=== PATIENT | female | born 1990 | race Caucasian/White ===

== ENCOUNTER → 2016-06-29 | Outpatient (CLI) | payer OTHER ==
[~2016-06-29] MED LIST: ACET-1256 PO; BUTA1CAP20 PO; CIPR-255 PO; CLB100 PO; LEVOTAB6 PO; MYR25 PO; OXYC7.5T65 PO; PENT100C6 PO; PHEN-775 PO; SULF800T23 PO; SUMA50TA15 PO; [UNRECOGNIZED DRUG - CODE] PO
== END | disposition home or self-care (01) ==
LOC: C.PAPS 12:01
PROVIDERS: ATTEND Obstetrics & Gynecology
DX: Z12.4 Encounter for screening for malignant neoplasm of cervix (principal)

== ENCOUNTER → 2016-07-05 | Outpatient (CLI) | payer OTHER | END | disposition home or self-care (01) | LOC: C.LABSPEC 16:56 | PROVIDERS: ATTEND Urology | DX: R35.0 Frequency of micturition (principal); Z87.440 Personal history of urinary (tract) infections ==

== ENCOUNTER → 2016-07-11 | Outpatient (CLI) | payer OTHER ==
--- NOTE | 2016-07-11 14:37 | MAMMOGRAPHY REPORT ---
ULTRASOUND OF BOTH BREASTS: 07/11/2016 CLINICAL HISTORY: 26-year-old woman presents with pain along the lateral left breast for approximate ly one month. COMPARISON: No prior exams were available for comparison. FINDINGS: Targeted ultrasound was performed in the lateral left breast in the area of pain pointed o ut by the patient (1:00 through 4:00 axes approximately 10 cm from the nipple). In the 1:00 breast, 10 cm from the nipple, incidental note is made of a morphologically normal lymph node with a thin c ortex measuring 1.6 mm. A lobulated hypoechoic circumscribed solid mass is identified in the 3:00 l eft breast, 6 cm from the nipple, likely incidental as the patient does not report focal pain over t his mass. It measures approximately 6.9 x 4.2 x 4.4 mm and definitive characterization with tissue sampling is recommended, although this is likely represents a benign fibroadenoma or lymph node. No other suspicious solid or cystic mass or fluid collection is identified. No focal skin thickening is identified in the area of pain. IMPRESSION: ACR BI-RADS CATEGORY 4A: LOW SUSPICION FOR MALIGNANCY - FOLLOW-UP RECOMMENDED 1. Ultrasound guided core needle biopsy is recommended for an indeterminate solid lobulated 6.9 mm mass in the 3:00 left breast, 6 cm from the nipple. 2. There is no diffuse process along the lateral left breast to explain the nonfocal mastalgia desc ribed by the patient. Therefore, clinical follow-up is recommended. These results and recommendations were discussed with the patient at the time of the exam. She tent atively scheduled the biopsy prior to leaving our department. Maria Eugenia Duncan M.D. ay/:07/11/2016 11:17:08 Attending Technologist: Lulu WILSON(Imani)(Power), [facility] Gamewell Operator: Dr. Maria Eugenia Duncan, [facility] letter sent: Abnormal 4/5 BI-RADS Code: ACR BI-RADS Category 4A: Low Suspicion For Malignancy
== END | disposition home or self-care (01) ==
LOC: C.MAMM 08:36
PROVIDERS: ATTEND Obstetrics & Gynecology
DX: N63 Unspecified lump in breast (principal)

== ENCOUNTER → 2016-07-22 | Outpatient (CLI) | payer OTHER ==
--- NOTE | 2016-07-22 11:33 | Discharge Instructions ---
Discharge Instructions Procedure Procedure Date: Jul 22, 2016. Reason for visit: Left Mass 3 O'clock. Discharge Discharge Date: Jul 22, 2016. Discharge Diagnosis: status post breast biopsy Instructions Activity Recommendations: Additional Limitations (see below) Return to School/Work: no limitations Recommended Home Diet: No Limitations Provider Instructions: ACTIVITY RECOMMENDATIONS: * No lifting, pushing, pulling or exercising the affected side for three days. RETURN TO SCHOOL/WORK: * You may return to work/school after the procedure, but do not perform any strenuous activities for 24 to 48 hours. MEDICATIONS: * Tylenol (two 325 mg) every four to six hours if needed for mild pain (if not allergic to Tylenol). DIET: * Resume previous diet. SPECIAL CARE INSTRUCTIONS: * Keep biopsy site dry for 24 hours. May shower after 24 hours, but do not soak (bathe) incision. * May remove Tegaderm (plastic patch) tomorrow AFTER showering. * Leave the steri-strips on for one week. Allow the steri-strips to fall off by themselves. If not off after one week, you may remove them. You may place a Bandaid crosswise over the strips, if desired. * Apply ice 10 minutes on and 10 minutes off as needed. * Wear a bra at bedtime to sleep more comfortably for 2-3 days. * Your referring physician should have the results after approximately 5 to 7 business days. * Call for unusual bleeding, fever, drainage, etc or if you have any questions call during normal business hours or after hours call Dr Castillo, . FOLLOW UP VISIT: Follow-up with Referring Physician as scheduled. Allergies Coded Allergies: Penicillins (Verified Allergy, Unknown, RASH/HIVES, 02/18/16) Caleb Piper Recommendations: Call your doctor if: * Temperature above 101 degrees * Pain not relieved by pain medicine ordered * There is increased drainage or redness from any incision * You have any unanswered questions or concerns. Your Doctors Instructions noted above were prepared by provider Liyah Castillo. Patient Signature Section: Patient Instructions Signature Page Aysha Robert Patient (or Guardian) Signature/Date: I have read and understand the instructions given to me by my caregivers. Caregiver/RN/Doctor Signature/Date: The above-named patient and/or guardian has received patient instructions on this date. + Original Patient Signature Page (only) stays with chart. Please make copy for patient.
--- NOTE | 2016-07-22 13:52 | MAMMOGRAPHY REPORT ---
ULTRASOUND GUIDED BIOPSY LEFT BREAST: 07/22/2016 CLINICAL HISTORY: Left 3:00 breast mass. PATIENT CONSENT: The procedure, risks and benefits were discussed with the patient and informed writ ten consent was obtained. A timeout was performed immediately prior to the procedure. PROCEDURE DESCRIPTION: With ultrasound guidance, aseptic technique, and lidocaine as the local anest hetic (1% lidocaine to anesthetize the skin and 1% lidocaine with epinephrine to anesthetize the césar per tissues), the mass of concern in the left 3:00 breast was sampled 3 times with a 14-gauge Achiev e biopsy needle. Immediately thereafter, with ultrasound guidance, aseptic technique, and lidocaine as the local anesthetic, a metallic localizer clip was placed centrally in the mass. Direct pressu re was applied to the site immediately post procedure and hemostasis was achieved. The patient tole rated the procedure without complication. She was given wound care instructions. The specimens were sent to pathology for analysis. COMPARISON: Comparison is made to exam dated: 07/11/2016 ultrasound - [facility]. IMPRESSION: ULTRASOUND GUIDED BIOPSY Ultrasound guided core needle biopsy of the left 3:00 breast mass, with clip placement. The patient will receive pathology results from her referring provider. Liyah Castillo M.D. /:07/22/2016 11:35:01 Automatic Drill Operator: Daniela Jordan, [facility]
== END | disposition home or self-care (01) ==
LOC: C.MAMM 11:05
PROVIDERS: ATTEND Obstetrics & Gynecology
DX: N63 Unspecified lump in breast (principal)

== ENCOUNTER 2016-08-13 23:07 | Emergency (ER) | payer OTHER ==
[~2016-08-13] VITALS: Ht 175.3 cm; Wt 85.8 kg
[~2016-08-13 23:07] MED LIST changes: -BUTA1CAP20 PO; -CIPR-255 PO; -CLB100 PO; -MYR25 PO; -OXYC7.5T65 PO; -PHEN-775 PO; -SULF800T23 PO; -SUMA50TA15 PO; -[UNRECOGNIZED DRUG - CODE] PO
[2016-08-13 23:08] VITALS: TEMP 37.2; Ht 175.3 cm; Wt 85.8 kg
[2016-08-13] MEDS ORDERED: PHENAZOPYRIDINE HCL 200 MG TAB PO STA (23:17)
[2016-08-13] MEDS ORDERED: CIPROFLOXACIN 500 MG TAB PO STA (23:17)
[2016-08-13 23:29] LABS: PREG INTERNAL NEGATIVE QC NEG CLEAR BACKGROUND; PREG INTERNAL POSITIVE QC POS CONTROL LINE
[2016-08-13] MEDS ORDERED: PHENAZOPYRIDINE HOME PACK 200 MG VIAL PO ONE (23:30)
[2016-08-13 23:31] LABS: URINE APPEARANCE CLOUDY (CLEAR); URINE BILIRUBIN NEG (NEG); URINE COLOR YELLOW; URINE EPITHELIAL CELL AUTO >30 /lpf (0-5); URINE NITRITE NEG (NEG); URINE PH 5.5 (4.5-7.5); URINE SPECIFIC GRAVITY 1.023 (1.000-1.030); UROBILINOGEN NEG (NEG)
[2016-08-13 23:34] LABS: MANUAL MICROSCOPIC REQUIRED? NO; REVIEW REQ? NO
[2016-08-13] MEDS ORDERED: CIPR-255 PO (23:38)
--- NOTE | 2016-08-13 23:43 | EMERGENCY ROOM VISIT NOTE ---
History Report prepared by Jaja: Selvin Vallejo Under the Supervision of: Dr. Juan Muñoz D.O. First contact with patient: 23:12 Chief Complaint: URINARY SYMPTOMS Stated Complaint: BLADDER & BACK PAIN History of Present Illness The patient is a 26 year old female who presents to the Emergency Room with complaints of constant pain in her bladder that began one day prior to arrival. The patient is also experiencing some pain in her left abdominal/flank area. She is also feeling fatigued and nauseous, but has not experienced any vomiting. The patient has been experiencing decreased volume of void when she urinated, and a "pulling sensation" when she goes. Her urine is cloudy, but this is normal for her as she is receiving Urinary Rescue treatments once per week. She denies any vaginal bleeding/discharge and had her LNMP 3 weeks ago, which was on schedule. 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 A total of 10 systems reviewed and were otherwise negative. Past Medical & Surgical Medical Problems: (1) Kidney stones (2) Stomach problems Surgical Problems: (1) H/O lithotripsy (2) History of appendectomy Family History Diabetes mellitus FH: heart disease FH: lung cancer FH: lung disease FHx: cancer Hypertension Seizures Social History Smoking Status: Never Smoker Alcohol Use: none Drug Use: none Marital Status: in relationship Housing Status: lives with family Occupation Status: [employer] student Current/Historical Medications Scheduled Ciprofloxacin Hcl (Cipro), 500 MG PO BID Levonorgestrel-Ethinyl Estradi (Seasonique), 1 TAB PO QAM Pentosan Polysulfate Sodium (Elmiron), 100 MG PO TID Scheduled PRN Acetaminophen (Tylenol), 500 MG PO Q12 PRN for Pain Allergies Coded Allergies: Penicillins (Verified Allergy, Unknown, RASH/HIVES, 02/18/16) Physical Exam Vital Signs Date Time Temp Pulse Resp B/P Pulse Ox O2 Delivery O2 Flow Rate FiO2 08/13/16 23:48 91 20 127/82 98 08/13/16 23:08 37.2 97 18 127/80 99 Room Air Physical Exam GENERAL: Patient is awake, alert, and in no acute distress. Patient is resting comfortably and showing no signs of anxiety EYES: The conjunctivae are clear. The pupils are round and reactive. EARS, NOSE, MOUTH AND THROAT: The nose is without any evidence of any deformity. Mucous membranes are moist tongue is midline NECK: The neck is nontender and supple. RESPIRATORY: Normal respiratory effort is noted there is no evidence of wheezing rhonchi or rales CARDIOVASCULAR: Regular rate and rhythm noted there no murmurs rubs or gallops normal S1 normal S2 GASTROINTESTINAL: The abdomen is soft, with no guarding or rigidity noted. Bowel sounds are present in all quadrants. Abdomen is nontender BACK: There is mild left CVA tenderness noted to percussion. No midline tenderness or or step-off noted range of motion in flexion extension as well as rotation no signs of muscle spasm noted MUSCULOSKELETAL/EXTREMITIES: There is no evidence of gross deformity full range of motion is noted in the hips and shoulders SKIN: There is no obvious evidence of any rash. There are no petechiae, pallor or cyanosis noted. NEUROLOGIC: Patient is awake alert and oriented x3 strength is symmetric patellar reflexes are 2+ bilaterally Medical Decision & Procedures Laboratory Results Test 08/13/16 23:15 Urine Color YELLOW Urine Appearance CLOUDY (CLEAR) Urine pH 5.5 (4.5-7.5) Urine Specific [place] 1.023 (1.000-1.030) Urine Protein NEG (NEG) Urine Glucose (UA) NEG (NEG) Urine Ketones NEG (NEG) Urine Occult Blood 2+ (NEG) Urine Nitrite NEG (NEG) Urine Bilirubin NEG (NEG) Urine Urobilinogen NEG (NEG) Urine Leukocyte Esterase LARGE (NEG) Urine WBC (Auto) >30 /hpf (0-5) Urine RBC (Auto) >30 /hpf (0-4) Urine Hyaline Casts (Auto) 1-5 /lpf (0-5) Urine Epithelial Cells (Auto) >30 /lpf (0-5) Urine Bacteria (Auto) 1+ (NEG) Urine Test NEG (NEG) Laboratory results per my review. Medications Administered Medications (Trade) Dose Ordered Sig/Ni Route Start Time Stop Time Status Last Admin Dose Admin Phenazopyridine HCl (Pyridium Tab) 200 mg NOW STAT PO 08/13/16 23:17 08/13/16 23:18 DC 08/13/16 23:27 200 MG Phenazopyridine HCl (Phenazopyridine HCl 200MG Home Pack) 1 homepack UD ONCE PO 08/13/16 23:30 08/13/16 23:31 DC 08/13/16 23:27 1 HOMEPACK Ciprofloxacin (Cipro Tab) 500 mg NOW STAT PO 08/13/16 23:17 08/13/16 23:18 DC 08/13/16 23:27 500 MG Ciprofloxacin (Cipro 500MG Home Pack) 1 homepack UD ONCE PO 08/13/16 23:45 08/13/16 23:46 DC 08/13/16 23:46 1 HOMEPACK Oxycodone HCl (Roxicodone Immediate Rel 5MG Home Pack) 1 homepack UD ONCE PO 08/13/16 23:45 08/13/16 23:46 DC 08/13/16 23:45 1 HOMEPACK Ondansetron HCl (ZOFRAN ODT 4MG Home Pack) 1 homepack UD ONCE PO 08/13/16 23:45 08/13/16 23:46 DC 08/13/16 23:45 1 HOMEPACK ED Course 2313: The patient was evaluated in room B6. A complete history and physical examination were performed. 2317: Ordered Ciprofloxacin 500 mg PO, Phenazopyridine 200 mg PO. 2330: Ordered Phenazopyridine 1 homepack PO. 2345: Zofran 1 homepack PO, Oxycodone HCl 1 homepack PO, Ciprofloxacin 1 homepack PO. 2348: Upon reevaluation, the patient is resting in bed. I discussed the results and treatment plan with her. She verbalized agreement of the treatment plan. The patient was discharged home. Medical Decision Differential diagnosis: Etiologies such as diverticulitis, PUD, biliary pathology, UTI, pancreatitis, obstruction, mesenteric ischemia, aortic pathology, infections, inflammatory bowel disease, renal colic, as well as others were entertained. Nursing notes reviewed. Patient's previous urine cultures were reviewed. The patient is a 26-year-old female who presented to the emergency department with dysuria and frequency as well as post void residual who presented to the emergency department for these symptoms with a history of cystitis. The patient has had previous urinary tract infections in the past. Her most recent urine cultures did not grow out a definite organism but she does have a urinalysis from December 2015 the grout Klebsiella which was pansensitive. The patient states that she has been treated with Cipro as well as Pyridium in the past with good relief. She was started on Cipro and Pyridium in the emergency department. She was offered pain medication but did not wish to have any. Her physical exam did not appear to be consistent with an acute surgical abdomen. She was encouraged to continue all medications as prescribed and drink plenty clear liquids. She was also encouraged to follow-up with her primary urologist for further evaluation. She was also encouraged to return to the emergency department immediately if symptoms change worsen or the need arises. Impression Primary Impression: Hemorrhagic cystitis Scribe Attestation The scribe's documentation has been prepared under my direction and personally reviewed by me in its entirety. I confirm that the note above accurately reflects all work, treatment, procedures, and medical decision making performed by me. Departure Information Dispostion Home / Self-Care Prescriptions Ciprofloxacin Hcl (CIPRO) 500 Mg Tab 500 MG PO BID, #14 TAB Prov: Juan Muñoz, 08/13/16 Referrals Ti Bethea D.O.Int.Med. (PCP) Forms HOME CARE DOCUMENTATION FORM, IMPORTANT VISIT INFORMATION Patient Instructions My [facility] Additional Instructions Drink plenty of clear liquids. Continue all medications as prescribed. Rest and avoid any strenuous activity. Call your primary urologist schedule a follow-up appointment. Return to the emergency department immediately if symptoms change worsen or if the need arises.
[2016-08-13] MEDS ORDERED: OXYCODONE IR HOME PACK PO ONE (23:45)
[2016-08-13] MEDS ORDERED: CIPROFLOXACIN 500MG HOME PACK PO ONE (23:45)
[2016-08-13] MEDS ORDERED: ONDANSETRON HOME PACK 4MG OD TAB PO ONE (23:45)
[2016-08-13 23:48] VITALS: BP 127/82; PULSE 91; O2SAT 98
--- NOTE | 2016-08-16 10:59 | Pharmacy Progress Note ---
ED Pharmacist Culture FollowUp Date of Service: Aug 16, 2016. Patient seen on 08/13/16 w/ urinary symptoms (dysuria, frequency), as well as abd pain, mild L flank pain. Pt was dx with cystitis and discharge w/ Rx for Ciprofloxacin 500mg PO BID x 7 days. Urine Cx is growing pansensitive E Coli. Cipro will cover this organism and duration of treatment appropriate UTI and for possible pyelo given symptoms. No action required.
[2016-11-03] MEDS ORDERED: OXYC7.5T65 PO (13:59)
[2016-11-03] MEDS ORDERED: CIPR-255 PO (13:59)
[2016-11-03] MEDS ORDERED: PHEN-775 PO (13:59)
== END 2016-08-13 23:49 | disposition home or self-care (01) ==
LOC: C.EDB 23:08
DX: N30.90 Cystitis, unspecified without hematuria (principal); A49.8 Other bacterial infections of unspecified site

== ENCOUNTER → 2016-08-29 | Outpatient (CLI) | payer OTHER ==
[~2016-08-29] MED LIST changes: +BUTA1CAP20 PO; +CIPR-255 PO; +OXYC7.5T65 PO; +PHEN-775 PO; +SULF800T23 PO; +SUMA50TA15 PO; +[UNRECOGNIZED DRUG - CODE] PO
== END | disposition home or self-care (01) ==
LOC: C.LABSPEC 11:38
PROVIDERS: ATTEND Urology
DX: N20.0 Calculus of kidney (principal); N30.10 Interstitial cystitis (chronic) without hematuria; B96.20 Unspecified Escherichia coli [E. coli] as the cause of diseases classified elsewhere

== ENCOUNTER 2016-10-05 18:19 | Emergency (ER) | payer OTHER ==
[~2016-10-05] VITALS: Ht 175.3 cm; Wt 84.0 kg
[~2016-10-05 18:19] MED LIST changes: -BUTA1CAP20 PO; -OXYC7.5T65 PO; -PHEN-775 PO; -SULF800T23 PO; -SUMA50TA15 PO; -[UNRECOGNIZED DRUG - CODE] PO
[2016-10-05 18:30] VITALS: TEMP 36.6; Ht 175.3 cm; Wt 84.0 kg
[2016-10-05] MEDS ORDERED: HYDROmorphone INJ 1 MG/ML SYR IV STA ×2 (19:16→20:39)
[2016-10-05] MEDS ORDERED: SODIUM CHLORIDE 0.9% 1000ML 1,000 ML IV STA ×2 (19:16→20:39)
[2016-10-05] MEDS ORDERED: ONDANSETRON INJ 2 MG/ML 2 ML VIAL IV STA (19:16)
--- NOTE | 2016-10-05 19:23 | EMERGENCY ROOM VISIT NOTE ---
History Report prepared by Jaja: Eli Finley Under the Supervision of: Dr. Tavo Louis M.D. 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 The patient rates her pain an 8/10 in intensity. Associated symptoms include suprapubic discomfort, weakness, and fatigue. The patient has a history of interstitial cystitis. She follows up with Dr. Chinchilla (Urology). She states the pain she is experiencing today is worse than pain she has experienced in the past related to her IC. The patient has recently been treated with Cipro for a UTI. She denies burning with urination, fevers, chills, vomiting, or any additional associated symptoms. 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 A total of 10 systems reviewed and were otherwise negative. Past Medical & Surgical Medical Problems: (1) Kidney stones (2) Stomach problems Surgical Problems: (1) H/O lithotripsy (2) History of appendectomy Family History Diabetes mellitus FH: heart disease FH: lung cancer FH: lung disease FHx: cancer Hypertension Seizures Social History Smoking Status: Never Smoker Alcohol Use: none Drug Use: none Marital Status: in relationship Housing Status: lives with family Occupation Status: [employer] student Current/Historical Medications Scheduled Levonorgestrel-Ethinyl Estradi (Seasonique), 1 TAB PO QAM Pentosan Polysulfate Sodium (Elmiron), 100 MG PO TID Sulfa/Trimethoprim (Bactrim Ds 800MG/160MG), 1 TAB PO BID Scheduled PRN Acetaminophen (Tylenol), 500 MG PO Q12 PRN for Pain Allergies Coded Allergies: Penicillins (Verified Allergy, Unknown, RASH/HIVES, 10/05/16) Physical Exam Vital Signs Date Time Temp Pulse Resp B/P Pulse Ox O2 Delivery O2 Flow Rate FiO2 10/05/16 22:49 77 16 105/53 96 Room Air 10/05/16 22:10 79 18 117/65 96 Room Air 10/05/16 19:48 93 16 97 Room Air 10/05/16 18:30 36.6 109 20 130/60 99 Room Air Physical Exam GENERAL: Patient is uncomfortable appearing, in moderate distress. HEENT: No acute trauma, normocephalic atraumatic, mucous membranes dry, no nasal congestion, no scleral icterus. NECK: No stridor, no adenopathy, no meningismus, trachea is midline. LUNGS: No dyspnea. Clear to auscultation and equal bilaterally. No wheeze, no rhonchi. HEART: Tachycardic, regular rhythm. No murmurs, rubs, gallops appreciated. ABDOMEN: Suprapubic discomfort. Soft, bowel sounds positive, no masses appreciated, no peritonitis. BACK: No midline tenderness, Left CVA tenderness to palpation. EXTREMITIES: Normal motion all extremities, no cyanosis, no edema. NEUROLOGIC: Alert and oriented, no acute motor or sensory deficits, no focal weakness, cranial nerves grossly intact. SKIN: No rash, no jaundice, no diaphoresis. Medical Decision & Procedures ER Provider Diagnostic Interpretation: US stated below per my review and radiologist interpretation: RENAL ULTRASOUND HISTORY: left flank pain, bladder pain, history of kidney stones COMPARISON: Renal ultrasound 04/09/2015. Abdomen and pelvis CT 01/29/2016. FINDINGS: Right kidney: 10.8 cm. No hydronephrosis. Normal corticomedullary differentiation and cortical thickness. Left kidney: 10.7 cm. No hydronephrosis. Normal corticomedullary differentiation and cortical thickness. Bladder: Bladder is decompressed resulting in suboptimal evaluation. No ureteral jets identified. IMPRESSION: Normal kidneys. Of note, no renal calculi were identified on the recent CT examination. Electronically signed by: Mj Maloney M.D. 10/05/2016 9:42 PM Dictated Date/Time: 10/05/2016 9:40 PM Laboratory Results 10/05/16 19:35 Red Blood Count 4.58, Mean Corpuscular Volume 91.5, Mean Corpuscular Hemoglobin 32.1, Mean Corpuscular Hemoglobin Concent 35.1, Mean Platelet Volume 9.7, Neutrophils (%) (Auto) 47.3, Lymphocytes (%) (Auto) 40.1, Monocytes (%) (Auto) 10.9, Eosinophils (%) (Auto) 0.9, Basophils (%) (Auto) 0.6, Neutrophils # (Auto ) 4.30, Lymphocytes # (Auto) 3.64, Monocytes # (Auto) 0.99, Eosinophils # (Auto ) 0.08, Basophils # (Auto) 0.05 10/05/16 19:35 Test 10/05/16 19:35 White Blood Count 9.08 K/uL (4.8-10.8) Red Blood Count 4.58 M/uL (4.2-5.4) Hemoglobin 14.7 g/dL (12.0-16.0) Hematocrit 41.9 % (37-47) Mean Corpuscular Volume 91.5 fL (80-100) Mean Corpuscular Hemoglobin 32.1 pg (25-34) Mean Corpuscular Hemoglobin Concent 35.1 g/dl (32-36) Platelet Count 293 K/uL (130-400) Mean Platelet Volume 9.7 fL (7.4-10.4) Neutrophils (%) (Auto) 47.3 % Lymphocytes (%) (Auto) 40.1 % Monocytes (%) (Auto) 10.9 % Eosinophils (%) (Auto) 0.9 % Basophils (%) (Auto) 0.6 % Neutrophils # (Auto) 4.30 K/uL (1.4-6.5) Lymphocytes # (Auto) 3.64 K/uL (1.2-3.4) Monocytes # (Auto) 0.99 K/uL (0.11-0.59) Eosinophils # (Auto) 0.08 K/uL (0-0.5) Basophils # (Auto) 0.05 K/uL (0-0.2) RDW Standard Deviation 41.5 fL (36.4-46.3) RDW Coefficient of Variation 12.4 % (11.5-14.5) Immature Granulocyte % (Auto) 0.2 % Immature Granulocyte # (Auto) 0.02 K/uL (0.00-0.02) Urine Color YELLOW Urine Appearance CLEAR (CLEAR) Urine pH 6.0 (4.5-7.5) Urine Specific [place] 1.025 (1.000-1.030) Urine Protein NEG (NEG) Urine Glucose (UA) NEG (NEG) Urine Ketones 3+ (NEG) Urine Occult Blood NEG (NEG) Urine Nitrite NEG (NEG) Urine Bilirubin NEG (NEG) Urine Urobilinogen NEG (NEG) Urine Leukocyte Esterase NEG (NEG) Urine WBC (Auto) 1-5 /hpf (0-5) Urine RBC (Auto) 5-10 /hpf (0-4) Urine Hyaline Casts (Auto) 5-10 /lpf (0-5) Urine Epithelial Cells (Auto) >30 /lpf (0-5) Urine Bacteria (Auto) 1+ (NEG) Urine Test NEG (NEG) Anion Gap 7.0 mmol/L (3-11) Est Creatinine Clear Calc Drug Dose 89.7 ml/min Estimated GFR () 80.2 Estimated GFR (Non- 69.2 BUN/Creatinine Ratio 11.3 (10-20) Calcium Level 9.2 mg/dl (8.5-10.1) C-Reactive Protein 0.46 mg/dl (0-0.29) Laboratory results as reviewed by me. Medications Administered Medications (Trade) Dose Ordered Sig/Ni Route Start Time Stop Time Status Last Admin Dose Admin Hydromorphone HCl (Dilaudid Inj) 1 mg NOW STAT IV 10/05/16 19:16 10/05/16 19:18 DC 10/05/16 19:36 1 MG Ondansetron HCl 4 mg 4 mg NOW STAT IV 10/05/16 19:16 10/05/16 19:18 DC 10/05/16 19:36 4 MG Sodium Chloride (Nss 1000ml) 1,000 ml @ 999 mls/hr Q1H1M STAT IV 10/05/16 19:16 10/05/16 20:16 DC 10/05/16 19:37 999 MLS/HR Hydromorphone HCl 1 mg 1 mg NOW STAT IV 10/05/16 20:39 10/05/16 20:40 DC 10/05/16 20:59 1 MG Sodium Chloride (Nss 1000ml) 1,000 ml @ 999 mls/hr Q1H1M STAT IV 10/05/16 20:39 10/05/16 21:39 DC 10/05/16 20:59 999 MLS/HR Ceftriaxone Sodium (Rocephin Inj) 1 gm NOW STAT IV 10/05/16 21:58 10/05/16 21:59 DC 10/05/16 22:17 1 GM ED Course 191: The patient was evaluated in room B3. A complete history and physical exam was performed. 1915: Ordered Sodium Chloride 1,000 ml @ 999 mls/hr IV, Zofran Injection 4 mg IV , Dilaudid Injection 1 mg IV. 2036: Upon reevaluation, the patient states that she was feeling better but the pain is beginning to return. She notes a history of kidney stones. She is agreeable to US. 2038: Ordered Sodium Chloride 1,000 ml @ 999 mls/hr IV, Dilaudid Injection 1 mg IV. 2155: The patient request IV antibiotics and 2 doctors notes. She notes that she gets a rash with penicillins but does not believe she is allergic to Rocephin. Patient would also like to try Bactrim tomorrow. 2157: Ordered Rocephin Injection 1 gm IV. Medical Decision Differential: UTI, Urethritis, Pyelonephritis, STI, Herpetic, Vaginitis, Hyperglycemia, Yeast, PID, Cystitis, Hemorrhagic Cystitis, amongst other pathologies entertained. Pleasant 26 yr old female with long history of issues with IC arrives with complaints left flank pain along with suprapubic discomfort similar to previous flares, having just finished macrobid month long course. UA really not very impressive though does have blood. US kidneys looks good. Symptoms none consistent with infected stone. Clearly dehydrated for which fluids given. Labs look OK with just trace CRP elevation. She is stable, feeling improved and has pain meds at home. Wishes to try abx given her history. Will place on Bactrim given recent cipro/macrobid usage and fact bactrim worked well in past. Has Uro appointment coming up. Discussed RTED instructions. Comfortable with discharge and aware can return at any time if worsening or other concerns. Impression Primary Impression: Left flank pain Additional Impression: Interstitial cystitis Scribe Attestation The scribe's documentation has been prepared under my direction and personally reviewed by me in its entirety. I confirm that the note above accurately reflects all work, treatment, procedures, and medical decision making performed by me. Departure Information Dispostion Home / Self-Care Prescriptions Sulfa/Trimethoprim (Bactrim Ds 800MG/160MG) Tab 1 TAB PO BID, #14 TAB Prov: Tavo Louis M.D. 10/05/16 Referrals Ti Bethea D.O.Int.Med. (PCP) Forms HOME CARE DOCUMENTATION FORM, IMPORTANT VISIT INFORMATION Patient Instructions Cystitis Interstitial, My [facility] Problem Qualifiers
[2016-10-05 19:48] LABS: BASO % 0.6 %; BASO ABS # 0.05 K/uL (0-0.2); COMPLETE YES; EOS % 0.9 %; HEMATOCRIT 41.9 % (37-47); IG% 0.2 %; LYMPH % 40.1 %; LYMPH ABS # 3.64 K/uL (1.2-3.4); MEAN CELL VOLUME 91.5 fL (80-100); MEAN CORPUSCULAR HEMOGLOBIN 32.1 pg (25-34); MEAN CORPUSCULAR HGB CONC 35.1 g/dl (32-36); MEAN PLATELET VOLUME 9.7 fL (7.4-10.4); MONO % 10.9 %; NEUT % 47.3 %; PLATELET COUNT 293 K/uL (130-400); RED BLOOD COUNT 4.58 M/uL (4.2-5.4); WHITE BLOOD COUNT 9.08 K/uL (4.8-10.8)
[2016-10-05 19:56] LABS: URINE APPEARANCE CLEAR (CLEAR); URINE BILIRUBIN NEG (NEG); URINE COLOR YELLOW; URINE EPITHELIAL CELL AUTO >30 /lpf (0-5); URINE NITRITE NEG (NEG); URINE SPECIFIC GRAVITY 1.025 (1.000-1.030); UROBILINOGEN NEG (NEG); ZZUR CULT IF INDIC CLEAN CATCH YES
[2016-10-05 19:59] LABS: MANUAL MICROSCOPIC REQUIRED? NO; REVIEW REQ? NO
[2016-10-05 20:07] LABS: BUN/CREATININE RATIO 11.3 (10-20); CALCIUM 9.2 mg/dl (8.5-10.1); CREATININE 1.1 mg/dl (0.60-1.20); POTASSIUM 3.6 mmol/L (3.5-5.1)
[2016-10-05 20:09] LABS: C-REACTIVE PROTEIN 0.46 mg/dl (0-0.29)
--- NOTE | 2016-10-05 21:44 | DIAGNOSTIC IMAGING REPORT ---
RENAL ULTRASOUND HISTORY: left flank pain, bladder pain, history of kidney stones COMPARISON: Renal ultrasound 04/09/2015. Abdomen and pelvis CT 01/29/2016. FINDINGS: Right kidney: 10.8 cm. No hydronephrosis. Normal corticomedullary differentiation and cortical thickness. Left kidney: 10.7 cm. No hydronephrosis. Normal corticomedullary differentiation and cortical thickness. Bladder: Bladder is decompressed resulting in suboptimal evaluation. No ureteral jets identified. IMPRESSION: Normal kidneys. Of note, no renal calculi were identified on the recent CT examination. Electronically signed by: Mj Maloney M.D. 10/05/2016 9:42 PM Dictated Date/Time: 10/05/2016 9:40 PM
[2016-10-05] MEDS ORDERED: CEFTRIAXONE SOD INJ 1 GM ADDVIAL IV STA (21:58)
[2016-10-05] MEDS ORDERED: SULF800T23 PO (21:59)
[2016-10-05 22:49] VITALS: BP 105/53; PULSE 77; O2SAT 96
[2016-11-03] MEDS ORDERED: PHEN-775 PO (13:59)
[2016-11-03] MEDS ORDERED: OXYC7.5T65 PO (13:59)
[2016-11-03] MEDS ORDERED: CIPR-255 PO (13:59)
== END 2016-10-05 23:05 | disposition home or self-care (01) ==
LOC: C.EDB 18:21
DX: R10.12 Left upper quadrant pain (principal); R10.32 Left lower quadrant pain; N30.10 Interstitial cystitis (chronic) without hematuria; Z87.442 Personal history of urinary calculi; Z83.3 Family history of diabetes mellitus; Z82.49 Family history of ischemic heart disease and other diseases of the circulatory system; Z82.0 Family history of epilepsy and other diseases of the nervous system; Z79.3 Long term (current) use of hormonal contraceptives

== ENCOUNTER 2016-11-03 11:31 | Day surgery (SDC) | payer OTHER ==
[2016-10-13 15:34] VITALS: BMI 26.0
[~2016-11-03] VITALS: Ht 175.3 cm; Wt 81.8 kg
[~2016-11-03 11:31] MED LIST changes: -CIPR-255 PO; +CIPROFLOXACIN / D5W 400 MG IV SCH; +LACTATED RINGER'S 1000ML 1,000 ML IV SCH
[2016-11-03 11:53] VITALS: BP 135/62; PULSE 88; TEMP 37.3; O2SAT 97; Ht 175.3 cm; Wt 81.8 kg
[2016-11-03] MEDS ORDERED: ONDANSETRON INJ 2 MG/ML 2 ML VIAL ONE (12:04)
[2016-11-03] MEDS ORDERED: PROPOFOL IV EMULSION 10 MG/ML 20 ML VIAL IV ONE ×2 (12:04→13:37)
[2016-11-03] MEDS ORDERED: MIDAZOLAM HCL 1 MG/ML 2ML VIAL ONE (12:04)
[2016-11-03] MEDS ORDERED: DEXAMETHASONE SOD INJ 4 MG/ML VIAL ONE (12:04)
[2016-11-03] MEDS ORDERED: LIDOCAINE HCL 2% 2 ML VIAL (20MG/ML) ONE (12:04)
[2016-11-03] MEDS ORDERED: FENTANYL CITRATE INJ 50 MCG/1 ML 2 ML VIAL ONE ×2 (12:04→13:38)
--- NOTE | 2016-11-03 12:44 | History & Physical Bridge Note ---
H&P Re-Evaluation Bridge Note: I have examined the patient, reviewed the History & Physical and in the interval since the performance of the History & Physical I have noted the following changes of clinical significance: No changes noted
[2016-11-03] MEDS ORDERED: ONDANSETRON INJ 2 MG/ML 2 ML VIAL IV PRN (12:45)
[2016-11-03] MEDS ORDERED: FENTANYL CITRATE INJ 50 MCG/1 ML 2 ML VIAL IV PRN (12:45)
[2016-11-03] MEDS ORDERED: EpHEDrine SULFATE INJ 50 MG/ML AMP IV PRN (12:45)
[2016-11-03] MEDS ORDERED: MEPERIDINE HCL 25 MG/ML CARP IV PRN (12:45)
[2016-11-03] MEDS ORDERED: ATROPINE SULFATE 0.1 MG/ML 5ML SYR IV PRN (12:45)
[2016-11-03] MEDS ORDERED: HYDROmorphone INJ 1 MG/ML SYR IV PRN (12:45)
[2016-11-03] MEDS ORDERED: LABETALOL HCL IV 5 MG/ML 20ML IV PRN (12:45)
[2016-11-03] MEDS ORDERED: BELLADONNA/OPIUM SUPP 60 MG SUPP PR ONE ×2 (13:35)
[2016-11-03] MEDS ORDERED: CIPR-255 PO (13:59)
[2016-11-03] MEDS ORDERED: OXYC7.5T65 PO (13:59)
[2016-11-03] MEDS ORDERED: PHEN-775 PO (13:59)
--- NOTE | 2016-11-03 13:59 | Discharge Instructions ---
Discharge Instructions Date of Service November 03, 2016. Admission Reason for Admission: Interstitial Cystitis Discharge Discharge Diagnosis / Problem: IC s/p cysto, hydrodistension Discharge Goals Goal(s): Decrease discomfort, Improve disease control, Therapeutic intervention Activity Recommendations Activity Limitations: per Instructions/Follow-up section Lifting Limitations: no more than 25 pounds, gradually increase as tolerated Exercise/Sports Limitations: rest today, gradually increase as tolerated May Resume Sexual Activity: when tolerated, after one week Shower/Bathe: no limitations Driving or Machine Use: resume 1 day after discharge . Instructions / Follow-Up Instructions / Follow-Up As scheduled in office Discharge Diet Recommended Diet: Regular Diet (good fluid intake) Procedures Procedures Performed: Cysto, hydrodistension Pending Studies Studies pending at discharge: no Medical Emergencies . Who to Call and When: Medical Emergencies: If at any time you feel your situation is an emergency, please call 911 immediately. . Non-Emergent Contact Non-Emergency issues call your: Urologist Call Non-Emergent contact if: you have a fever, temperature is above 101, your pain is not controlled, your pain is worsening, your pain is unusual for you, your pain is concerning you, wound has increased drainage, wound has increased redness, you have any medication questions . . "Provider Documentation" section prepared by Jakob Chinchilla. . VTE Core Measure Inpt VTE Proph given/why not?: SCD's [place] Drug Monitoring Program Search Results: patient reviewed within database, no issues identified (last Rx Feb 2016)
[2016-11-03] MEDS ORDERED: OXYCODONE/ACETAMINOPHEN 5-325 TAB PO PRN (14:00)
[2016-11-03] MEDS ORDERED: PHENAZOPYRIDINE HCL 200 MG TAB PO PRN (14:00)
--- NOTE | 2016-11-03 14:01 | [facility] Post Operative Brief Note ---
Immediate Operative Summary Operative Date November 03, 2016. Pre-Operative Diagnosis Refactory Interstitial Cystitis Post-Operative Diagnosis Same as preoperative. Procedure(s) Performed Cystoscopy, hydrodistension under anesthesia Surgeon Dr. Enid Chinchilla Jewel Sorter Surgeon(s) None Estimated Blood Loss 10 ML Findings Glomerulations present after completion, 525 cc capacity first distension, 600 cc second time Specimens None per surgeon Drains NA Anesthesia GALMA Complication(s) None Disposition Recovery Room / PACU
--- NOTE | 2016-11-03 14:39 | Anesthesiology Progress Note ---
Anesthesia Post Op Note Date & Time November 03, 2016 at 14:40 Vital Signs Pain Intensity: 7 Vital Signs Past 12 Hours Date Time Temp Pulse Resp B/P Pulse Ox O2 Delivery O2 Flow Rate FiO2 11/03/16 11:53 37.3 88 20 135/62 97 Room Air Notes Mental Status: alert / awake / arousable, participated in evaluation Pt Amnestic to Procedure: Yes Nausea / Vomiting: adequately controlled Pain: adequately controlled Airway Patency, RR, SpO2: stable & adequate BP & HR: stable & adequate Hydration State: stable & adequate Anesthetic Complications: no major complications apparent
[2016-11-03 14:55] VITALS: BP 106/40; PULSE 64; TEMP 36.6; O2SAT 99
[2016-11-03 15:25] VITALS: BP 98/62; PULSE 70; TEMP 36.4; O2SAT 98
--- NOTE | 2016-11-03 16:59 | OPERATIVE REPORT ---
DATE OF OPERATION: 11/03/2016 PREOPERATIVE DIAGNOSIS: Refractory interstitial cystitis. POSTOPERATIVE DIAGNOSIS: Same. PROCEDURE: Cystoscopy, hydrodistention under anesthesia. SURGEON: Dr. Jakob Chinchilla. FIREARMS SALES ASSOCIATE: None. ANESTHESIA: General laryngeal mask. COMPLICATIONS: None. ESTIMATED BLOOD LOSS: 10 mL. FINDINGS: Glomerulations present after bladder distention, 525 mL capacity on first one and 600 mL capacity on second one. DRAINS LEFT IN PLACE: None. SPECIMENS SENT TO PATHOLOGY: None. BRIEF HISTORY OF PRESENT ILLNESS: Ms. Robert is a pleasant 26-year-old female who I have seen as an outpatient for history of refractory pelvic pain and interstitial cystitis. She has continued to have pain despite conservative management as an outpatient and responded well to hydrodistention in February 2016. She is here today at her request for repeat hydrodistention seeing her prior improvement and refractory current symptoms. Intravenous ciprofloxacin provided for antibiotic coverage and SCDs used for DVT prophylaxis. Please see H\T\P for further details. DESCRIPTION OF PROCEDURE: The patient was properly identified and brought to the operative suite after identification of appropriate consent in the chart, general anesthesia with laryngeal mask was initiated and the patient was prepped and draped in standard fashion for this procedure. dirt contractor-out procedure was followed. Specimen bag was measured at 100 cm above the level of the patient's bladder and a 22-Bengali rigid cystoscope was entered into the bladder. Bladder was surveyed in its entirety demonstrating normal anatomy with ureteral orifices in the normal anatomic location and effluxing clear yellow urine. No Hunner's ulcers, masses, lesions, stones or mucosal changes were appreciated. Water was allowed to run freely into the bladder until this was a capacity. Pressure was held on the lateral aspect of the urethra to prevent leakage around the cystoscope instead. This was left in situ for 2 minutes by the clock and then the bladder was drained and irrigant was measured. A 525 mL of bloody urine was obtained the first time through. Glomerulations were present on bladder decompression after the first pass. The procedure was repeated for the second time and this time capacity was up to 600 mL. The patient tolerated the procedure well without difficulties. At completion, the cystoscopy demonstrated no evidence of bladder injury or tears. Again, a tear at the mucosal level was noted. Bladder was drained. The cystoscope was removed. Belladonna and opium suppository was provided for additional postoperative analgesia. Anesthesia was reversed. The patient was transferred to recovery room in stable condition. FOLLOWUP CARE: The patient will be discharged home with a prescription for Percocet, Pyridium and ciprofloxacin. Outpatient appointment is confirmed. The patient is instructed to contact our service should she note any fevers, chills, nausea, vomiting or other significant difficulties in the postoperative period. I attest to the content of the Intraoperative Record and any orders documented therein. Any exceptio ns are noted below.
== END 2016-11-03 15:40 | disposition home or self-care (01) ==
LOC: C.ACU 11:31
PROVIDERS: ATTEND Urology
DX: N30.10 Interstitial cystitis (chronic) without hematuria (principal); E55.9 Vitamin D deficiency, unspecified; Z87.440 Personal history of urinary (tract) infections; Z90.49 Acquired absence of other specified parts of digestive tract; Z83.3 Family history of diabetes mellitus; Z80.0 Family history of malignant neoplasm of digestive organs; Z80.1 Family history of malignant neoplasm of trachea, bronchus and lung

== ENCOUNTER → 2016-11-23 | Outpatient (CLI) | payer BC, OTHER ==
[~2016-11-23] MED LIST changes: +BUTA1CAP20 PO; +CIPR-255 PO; -CIPROFLOXACIN / D5W 400 MG IV SCH; -LACTATED RINGER'S 1000ML 1,000 ML IV SCH; +OXYC7.5T65 PO; +SUMA50TA15 PO; +[UNRECOGNIZED DRUG - CODE] PO
== END | disposition home or self-care (01) ==
LOC: C.LABSPEC 17:05
PROVIDERS: ATTEND Nurse Practitioner Adult Health
DX: N20.0 Calculus of kidney (principal); N30.10 Interstitial cystitis (chronic) without hematuria; N39.0 Urinary tract infection, site not specified

== ENCOUNTER → 2016-12-26 | Outpatient (CLI) | payer BC ==
[~2016-12-26] MED LIST changes: -BUTA1CAP20 PO; -SUMA50TA15 PO; -[UNRECOGNIZED DRUG - CODE] PO
--- NOTE | 2016-12-26 19:00 | DIAGNOSTIC IMAGING REPORT ---
LEFT VENOUS DOPPLER UPR EXT UNI HISTORY: Pain. Edema. M79.602 Arm pain, diffuse, leftM79.89 Left arm [id number] COMPARISON STUDY: None. FINDINGS: The internal jugular vein is patent. There is normal flow within the subclavian vein. There is normal flow and compressibility within the left axillary, basilic, brachial, radial, ulnar, and visualized cephalic veins. IMPRESSION: No DVT within the upper extremity. No evidence for abscess or collection by ultrasound criteria The above report was generated using voice recognition software. It may contain grammatical, syntax or spelling errors. Electronically signed by: Melo Damon M.D. 12/26/2016 6:59 PM Dictated Date/Time: 12/26/2016 6:55 PM
== END | disposition home or self-care (01) ==
LOC: C.ULTR 18:12
PROVIDERS: ATTEND Internal Medicine
DX: M79.602 Pain in left arm (principal); M79.89 Other specified soft tissue disorders

== ENCOUNTER 2017-01-06 17:23 | Emergency (ER) | payer BC ==
[~2017-01-06] VITALS: Ht 170.2 cm; Wt 83.3 kg
[2017-01-06 17:24] VITALS: TEMP 36.8; Ht 170.2 cm; Wt 83.3 kg
[2017-01-06] MEDS ORDERED: [UNRECOGNIZED DRUG - CODE] PO (17:33)
[2017-01-06] MEDS ORDERED: SUMATRIPTAN SUCCINATE 6 MG/0.5 ML VIAL SQ STA (17:41)
[2017-01-06] MEDS ORDERED: BUTA1CAP20 PO (17:52)
[2017-01-06] MEDS ORDERED: SUMA50TA15 PO (18:52)
--- NOTE | 2017-01-06 18:54 | EMERGENCY ROOM VISIT NOTE ---
History First contact with patient: 17:31 Chief Complaint: HEADACHE Stated Complaint: REALLY BAD HEADACHE History of Present Illness The patient is a 26 year old female who presents to the Emergency Room with complaints of headaches which started 3 weeks ago. The patient states that the headaches are above her eyes left greater than right. She admits to photosensitivity. She also states that prior to getting the headaches she gets blurred vision in the right eye and bright lights. She denies any dizziness. The patient does admit to nausea but denies any vomiting. The patient does not have a history of migraine headaches. She states that 2 weeks ago she had a CT at [facility] where she went for her headache. She states that they told her it was normal. She also saw [facility] physicians group on Monday for the headache and was given a shot of what she thinks was Decadron which took the headache away for the day but then it came back and is even worse today. She also was given Fioricet to take as needed. The patient's last tablet was at 7 AM. She states the Fioricet is not helping her headaches. She hasn't appointment scheduled with neurology on January 25 with Monique Horner. The patient has never been given Imitrex for the headache. The patient denies any recent trauma to her head or any neck injury. Review of Systems 10 system review was performed and was negative unless stated otherwise history of present illness. Past Medical/Surgical History Medical Problems: (1) Kidney stones (2) Stomach problems Surgical Problems: (1) H/O lithotripsy (2) History of appendectomy Family History Diabetes mellitus FH: heart disease FH: lung cancer FH: lung disease FHx: cancer Hypertension Seizures Social History Smoking Status: Never Smoker Alcohol Use: none Drug Use: none Marital Status: in relationship Housing Status: lives with family Occupation Status: [employer] student Current/Historical Medications Scheduled Levonorgestrel-Ethinyl Estradi (Ashlyna 0.15-0.03 &0.01 mg), 1 TAB PO DAILY Pentosan Polysulfate Sodium (Elmiron), 100 MG PO TID Scheduled PRN Gvvtreaymk-Isidzejhyeqko-Iawya (Butalbital/APAP/Caffeine 50-300-40 mg), 1 CAP PO DIRECTED PRN for Headache Physical Exam Vital Signs Date Time Temp Pulse Resp B/P (MAP) Pulse Ox O2 Delivery O2 Flow Rate FiO2 7/28/17 17:24 36.8 77 16 131/69 98 Room Air Physical Exam GENERAL: 26-year-old white female appears uncomfortable secondary to headache. MENTAL Status: Alert and oriented 3. HEAD: Atraumatic, nontender to palpation. EYES: PERRLA. EOMs intact. EARS: Canals clear. TMs without fluid level noted. NECK: Supple, no lymphadenopathy noted. No carotid bruits noted. LUNGS: Clear auscultation without wheezes rales or rhonchi. CARDIAC: Regular rate and rhythm without murmur. Pulses is full and equal throughout. NEURO:Cranial nerves two through 12 intact. Cerebellar function intact with [id number]-uvco. Fine motor intact with alternating finger motions. Medical Decision & Procedures Medications Administered Medications (Trade) Dose Ordered Sig/Ni Route Start Time Stop Time Status Last Admin Dose Admin Sumatriptan Succinate (Imitrex Sq Inj) 6 mg NOW STAT SQ 01/06/17 17:41 01/06/17 17:43 DC 01/06/17 17:59 6 MG ED Course The patient was evaluated. I had the secretaries obtain the CT from [facility]. This was reviewed. The patient was given Imitrex 6 mg subcutaneous. I received a copy of the report from the patient's CT of the head [facility] dated 12/23/2016. There were no acute intracranial findings. The patient was reevaluated and was feeling almost completely better after receiving the Imitrex. The patient was discharged home in stable condition. Medical Decision Differential includes: Acute intracranial bleed, trauma, meningitis, encephalitis, increased intracranial pressure, mass or mass effect, facial or dental infection, temporal arteritis, CVA, TIA, acute hypertensive emergency, sinusitis, carbon monoxide exposure. Impression Primary Impression: Headache Departure Information Dispostion Home / Self-Care Condition GOOD Prescriptions Sumatriptan Succinate (Imitrex) 50 Mg Tab 50 MG PO PRN for Headache, #10 TAB Prov: Vanessa Damon PA-C 01/06/17 Referrals Ti Bethea D.O.Int.Med. (PCP) Forms HOME CARE DOCUMENTATION FORM, IMPORTANT VISIT INFORMATION Patient Instructions ED Headache Migraine, My [facility] Additional Instructions Take Imitrex as directed for recurrent migraines. Do not exceed 200 mg in 24 hours. Keep scheduled appointment with Monique horner in January. If you have headaches that you cannot resolve with the Imitrex, return to ER. Problem Qualifiers Primary Impression: Headache Headache type: unspecified Headache chronicity pattern: acute headache Intractability: intractable Qualified Codes: R51 - Headache
[2017-01-06 19:18] VITALS: BP 124/71; PULSE 67; O2SAT 98
== END 2017-01-06 19:18 | disposition home or self-care (01) ==
LOC: C.EDB 17:24
DX: R51 Headache (principal); Z79.3 Long term (current) use of hormonal contraceptives; Z79.899 Other long term (current) drug therapy; Z87.19 Personal history of other diseases of the digestive system; Z87.442 Personal history of urinary calculi; Z80.1 Family history of malignant neoplasm of trachea, bronchus and lung; Z82.0 Family history of epilepsy and other diseases of the nervous system; Z82.49 Family history of ischemic heart disease and other diseases of the circulatory system; Z83.3 Family history of diabetes mellitus; Z83.6 Family history of other diseases of the respiratory system

== ENCOUNTER → 2017-01-11 | Outpatient (CLI) | payer BC ==
[~2017-01-11] MED LIST changes: -ACET-1256 PO; +BUTA1CAP20 PO; -CIPR-255 PO; -LEVOTAB6 PO; -OXYC7.5T65 PO; +SUMA50TA15 PO; +[UNRECOGNIZED DRUG - CODE] PO
[2017-01-11 19:30] LABS: PREG INTERNAL NEGATIVE QC NEG CLEAR BACKGROUND; PREG INTERNAL POSITIVE QC POS CONTROL LINE
== END | disposition home or self-care (01) ==
LOC: C.LAB 17:30
PROVIDERS: ATTEND Physician Assistant
DX: N93.9 Abnormal uterine and vaginal bleeding, unspecified (principal)

== ENCOUNTER → 2017-01-20 | Outpatient (CLI) | payer BC ==
[~2017-01-20] MED LIST changes: +GADAVIST IV PRN
--- NOTE | 2017-01-20 15:52 | DIAGNOSTIC IMAGING REPORT ---
BRAIN COMBO CLINICAL HISTORY: NUMBNESS R SIDE,WEAKNESS,STROKE-LIKE EPISODE change in mental status COMPARISON STUDY: No previous studies for comparison. TECHNIQUE: Utilizing a 1.5 Kateryna magnet and dedicated coil, multiplanar, multiecho imaging of the brain was performed pre and postcontrast administration. IV administration of 8.3 mL of Gadavist contrast was uneventful. FINDINGS: Signal characteristics of the cerebellar as well as cerebral hemispheres are unremarkable. Diffusion-weighted images are negative for an acute ischemic insult. There is a very small venous angioma posterior aspect left occipital lobe of doubtful clinical significance. Ventricular system is midline. There are no space-occupying lesions. Sella and parasellar regions are unremarkable. The orbital regions are unremarkable. IMPRESSION: Negative MRI of the brain. The above report was generated using voice recognition software. It may contain grammatical, syntax or spelling errors. Electronically signed by: Melo Damon M.D. 01/20/2017 3:51 PM Dictated Date/Time: 01/20/2017 3:47 PM
== END | disposition home or self-care (01) ==
LOC: C.MRI 14:49
PROVIDERS: ATTEND Psychiatry & Neurology Neurology
DX: I63.9 Cerebral infarction, unspecified (principal); R53.1 Weakness; R20.0 Anesthesia of skin

== ENCOUNTER → 2017-06-29 | Outpatient (CLI) | payer BC ==
[~2017-06-29] MED LIST changes: -GADAVIST IV PRN
--- NOTE | 2017-06-29 17:51 | DIAGNOSTIC IMAGING REPORT ---
RIGHT KNEE 4 VIEWS CLINICAL HISTORY: Right knee injury. FINDINGS: AP, crosstable lateral, tunnel, and sunrise views of the right knee are obtained. No prior studies are available for comparison at the time of dictation. The skeletal structures are well mineralized. No fracture is seen. The joint spaces are well-maintained. There is no evidence of osteochondral defect on the tunnel image. A calcified fabella is incidentally noted. No joint effusion is identified. The overlying soft tissues are within normal limits. IMPRESSION: No acute bony abnormality is seen in the right knee. Electronically signed by: Rob Manzano M.D. 06/29/2017 5:49 PM Dictated Date/Time: 06/29/2017 5:48 PM
== END | disposition home or self-care (01) ==
LOC: C.RAD1850 16:25
PROVIDERS: ATTEND Internal Medicine
DX: S89.91XA Unspecified injury of right lower leg, initial encounter (principal); X58.XXXA Exposure to other specified factors, initial encounter

== ENCOUNTER → 2017-07-07 | Outpatient (CLI) | payer BC | END | disposition home or self-care (01) | LOC: C.LABSPEC 10:54 | PROVIDERS: ATTEND Urology | DX: N30.10 Interstitial cystitis (chronic) without hematuria (principal) ==

== ENCOUNTER → 2017-07-13 | Outpatient (CLI) | payer BC ==
[~2017-07-13] MED LIST changes: -SUMA50TA15 PO
--- NOTE | 2017-07-13 18:40 | DIAGNOSTIC IMAGING REPORT ---
RIGHT KNEE MRI HISTORY: RIGHT KNEE PAIN COMPARISON STUDY: Right knee 06/29/2017. TECHNIQUE: Multiplanar multisequence MRI of the right knee was performed according to standard department protocol without the use of contrast. FINDINGS: Menisci: The medial and lateral menisci are intact. Ligaments: The anterior and posterior cruciate ligaments are intact. The medial and lateral collateral ligaments are normal in appearance. Extensor mechanism: The quadriceps tendon and patellar ligament are intact. Articular cartilage and bone: There is mild cartilage thinning/defect along the inferior aspect of the lateral patellar facet. This is consistent with mild patellar chondromalacia. Mild marrow edema adjacent to the cartilage abnormality. No fracture or dislocation within the knee. Joint effusion: No significant joint effusion. Soft tissues: Subcentimeter popliteal cyst. Mild edema within the superior aspect of Hoffa's fat-pad and the inferior aspect of the suprapatellar fat-pad adjacent to the lateral patellofemoral compartment. IMPRESSION: 1. No evidence for meniscal tear. 2. No significant joint effusion. 3. 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 4. Mild edema within the superior aspect of Hoffa's fat-pad and inferior aspect of the suprapatellar fat pad. This could represent impingement or maltracking of the patella. Electronically signed by: Mj Maloney M.D. 07/13/2017 6:38 PM Dictated Date/Time: 07/13/2017 6:27 PM
== END | disposition home or self-care (01) ==
PROVIDERS: ATTEND Orthopaedic Surgery
DX: M25.561 Pain in right knee (principal); M25.461 Effusion, right knee; M22.41 Chondromalacia patellae, right knee

== ENCOUNTER → 2017-07-18 | Outpatient (CLI) | payer BC | END | disposition home or self-care (01) | LOC: C.LAB 17:35 | PROVIDERS: ATTEND Urology | DX: R35.0 Frequency of micturition (principal) ==

== ENCOUNTER → 2017-08-04 | Outpatient (CLI) | payer BC | END | disposition home or self-care (01) | LOC: C.PAPS 16:44 | PROVIDERS: ATTEND Physician Assistant | DX: Z01.419 Encounter for gynecological examination (general) (routine) without abnormal findings (principal); Z11.51 Encounter for screening for human papillomavirus (HPV) ==

== ENCOUNTER → 2017-08-18 | Outpatient (CLI) | payer BC ==
[~2017-08-18] MED LIST changes: +ACET-1693 PO; +LEVO1IUD INT UTER; +NITR1CAP32 PO; -[UNRECOGNIZED DRUG - CODE] PO
--- NOTE | 2017-08-18 13:53 | MAMMOGRAPHY REPORT ---
ULTRASOUND OF LEFT BREAST: 08/18/2017 CLINICAL HISTORY: The patient reports left lateral breast pain radiating to her nipple, which was wor ked up previously in June 2016 but she feels that the pain is worsening. She denies any palpable lumps, nipple discharge, or other complaints. She also feels that her left breast is heavier than he r right breast. On questioning, she reports mild diffuse cyclical tenderness involving her right trudy ast. COMPARISON: Comparison is made to exams dated: 07/11/2016 ultrasound and 07/22/2016 ultrasound biopsy - [facility]. TECHNIQUE: Real-time targeted ultrasound of the left breast was performed. FINDINGS: Real-time, high-resolution targeted ultrasound was performed of the area of pain pointed ou t by the patient involving the left lateral breast extending towards her nipple. Ultrasound of this region shows no suspicious masses or other suspicious sonographic abnormalities. Again noted in the left 3:00 breast, 6 cm from the nipple, is a hypoechoic circumscribed mass with internal vascularity which measures 6 x 6 mm. The mass is not significantly changed and was previously biopsied and was f ound to represent a benign intramammary lymph node. IMPRESSION: ACR BI-RADS CATEGORY 2: BENIGN No suspicious sonographic abnormality to explain left lateral breast pain. There is no sonographic e vidence of malignancy. Recommend clinical follow-up. The patient was verbally notified of the resul ts. Liyah Castillo M.D. ah/:08/18/2017 09:07:55 Attending Technologist: Lulu WILSON(Imani)(M), [facility] Automotive Glass Technician: Liyah Castillo MD, [facility] letter sent: Normal 1/2 BI-RADS Code: ACR BI-RADS Category 2: Benign
== END | disposition home or self-care (01) ==
LOC: C.MAMM 08:34
PROVIDERS: ATTEND Physician Assistant
DX: N64.4 Mastodynia (principal)

== ENCOUNTER 2017-08-29 08:32 | Day surgery (SDC) | payer BC ==
[2017-08-15 15:02] VITALS: Ht 175.3 cm; Wt 84.2 kg
--- NOTE | 2017-08-15 15:51 | PAT Medication Instructions ---
Service Date Aug 15, 2017. Current Home Medication List Acetaminophen Tab (Tylenol), 650 MG PO PRN Qdtliceohq-Nteoozpxlrdsa-Dxzqh (Butalbital/APAP/Caffeine 50-300-40 mg), 1 CAP PO DIRECTED PRN for Headache Levonorgestrel (Iud) (Saranya), 1 DOSE INT UTER U Nitrofurantoin Macrocrystals (Macrodantin), 100 MG PO BID Pentosan Polysulfate Sodium (Elmiron), 100 MG PO TID Medication Instructions For Your Scheduled Surgery -Continue as directed: Levonorgestrel (Iud) (Saranya), 1 DOSE INT UTER U - Take the following medications the morning of surgery with a sip of water: Acetaminophen Tab (Tylenol), 650 MG PO PRN (if needed, can be taken up to four hours before surgery) Avsqcqfvsa-Tporhfnpcgvkc-Akjqi (Butalbital/APAP/Caffeine 50-300-40 mg), 1 CAP PO DIRECTED PRN for Headache (if needed, can be taken up to four hours before surgery) Nitrofurantoin Macrocrystals (Macrodantin), 100 MG PO BID Pentosan Polysulfate Sodium (Elmiron), 100 MG PO TID' - Take the following medications as scheduled the night before surgery: Acetaminophen Tab (Tylenol), 650 MG PO PRN (if needed) Zefcxadbnt-Gjrwmnognkdky-Imdtz (Butalbital/APAP/Caffeine 50-300-40 mg), 1 CAP PO DIRECTED PRN for Headache (if needed) Nitrofurantoin Macrocrystals (Macrodantin), 100 MG PO BID Pentosan Polysulfate Sodium (Elmiron), 100 MG PO TID If you have any questions please call us at [phone] or [phone] or [phone]
[2017-08-15 16:04] LABS: BASO % 0.6 %; BASO ABS # 0.04 K/uL (0-0.2); EOS % 1.6 %; EOS ABS # 0.11 K/uL (0-0.5); HEMATOCRIT 40.7 % (37-47); HEMOGLOBIN 14.4 g/dL (12.0-16.0); IG# 0.01 K/uL (0.00-0.02); LYMPH % 29.4 %; LYMPH ABS # 2.03 K/uL (1.2-3.4); MEAN CELL VOLUME 90.6 fL (80-100); MEAN CORPUSCULAR HEMOGLOBIN 32.1 pg (25-34); MEAN CORPUSCULAR HGB CONC 35.4 g/dl (32-36); MONO ABS # 0.76 K/uL (0.11-0.59); NEUT % 57.3 %; NEUT ABS # 3.95 K/uL (1.4-6.5); PLATELET COUNT 276 K/uL (130-400); RED CELL DISTRIBUTION WIDTH CV 12.4 % (11.5-14.5); RED CELL DISTRIBUTION WIDTH SD 41.3 fL (36.4-46.3)
[2017-08-15 16:13] LABS: CALCIUM 8.9 mg/dl (8.5-10.1); CREATININE 0.97 mg/dl (0.60-1.20)
[~2017-08-29] VITALS: Ht 175.3 cm; Wt 84.2 kg
[~2017-08-29 08:32] MED LIST changes: +ATROPINE SULFATE 0.1 MG/ML 5ML SYR IV PRN; +CIPROFLOXACIN / D5W 400 MG IV SCH; +EpHEDrine SULFATE INJ 50 MG/ML AMP IV PRN; +HYDROmorphone INJ 1 MG/ML SYR IV PRN; +LACTATED RINGER'S 1000ML 1,000 ML IV SCH; +ONDANSETRON INJ 2 MG/ML 2 ML VIAL IV PRN
[2017-08-29] MEDS ORDERED: SUMA50TA15 PO (08:54)
[2017-08-29 09:02] VITALS: BP 108/68; PULSE 89; TEMP 37; O2SAT 98
[2017-08-29] MEDS ORDERED: LIDOCAINE HCL 2% 2 ML VIAL (20MG/ML) ONE (10:06)
[2017-08-29] MEDS ORDERED: MIDAZOLAM HCL 1 MG/ML 2ML VIAL ONE (10:06)
[2017-08-29] MEDS ORDERED: ONDANSETRON INJ 2 MG/ML 2 ML VIAL ONE (10:06)
[2017-08-29] MEDS ORDERED: PROPOFOL IV EMULSION 10 MG/ML 20 ML VIAL IV ONE (10:06)
[2017-08-29] MEDS ORDERED: DEXAMETHASONE SOD INJ 4 MG/ML VIAL ONE (10:06)
[2017-08-29] MEDS ORDERED: FENTANYL CITRATE INJ 50 MCG/1 ML 2 ML VIAL ONE (10:07)
--- NOTE | 2017-08-29 10:07 | [facility] Post Operative Brief Note ---
Immediate Operative Summary Operative Date Aug 29, 2017. Pre-Operative Diagnosis Refractory Interstitial Cystitis Post-Operative Diagnosis Refractory Interstitial Cystitis Procedure(s) Performed Cystoscopy, Hydrodistension of Bladder Surgeon Dr. Jakob Chinchilla Ball Assembler Surgeon(s) None Estimated Blood Loss 10 mL Findings See Below 500 cc on first distension, 600 second Specimens No pathology specimens per surgeon Drains None Anesthesia Type General Complication(s) none Disposition Accompanied Pt To Recover: no Disposition: Recovery Room / PACU
[2017-08-29] MEDS ORDERED: OXYC-57 PO (10:20)
[2017-08-29] MEDS ORDERED: CIPR-255 PO (10:20)
--- NOTE | 2017-08-29 10:28 | Discharge Instructions ---
Discharge Instructions Date of Service Aug 29, 2017. Admission Reason for Admission: Interstitial Cystitis Discharge Discharge Diagnosis / Problem: Interstitial cystitis s/p cysto, hydrodistension Discharge Goals Goal(s): Decrease discomfort, Improve function, Therapeutic intervention Activity Recommendations Activity Limitations: as noted below Lifting Limitations: gradually increase as tolerated Exercise/Sports Limitations: rest today, gradually increase as tolerated May Resume Sexual Activity: when tolerated Shower/Bathe: no limitations Driving or Machine Use: resume 1 day after discharge . Instructions / Follow-Up Instructions / Follow-Up Follow-up in office as scheduled for symptom check. Current Hospital Diet Patient's current hospital diet: Discharge Diet Recommended Diet: Regular Diet (good fluid intake) Procedures Procedures Performed: Cystoscopy, Hydrodistension of Bladder Pending Studies Studies pending at discharge: no Medical Emergencies . Who to Call and When: Medical Emergencies: If at any time you feel your situation is an emergency, please call 911 immediately. . Non-Emergent Contact Non-Emergency issues call your: Urologist Call Non-Emergent contact if: you have a fever . . "Provider Documentation" section prepared by Jakob Chinchilla. .
[2017-08-29] MEDS ORDERED: OXYCODONE/ACETAMINOPHEN 5-325 TAB PO PRN ×2 (10:30)
[2017-08-29] MEDS ORDERED: PHENAZOPYRIDINE HCL 200 MG TAB PO PRN (10:30)
--- NOTE | 2017-08-29 10:32 | [facility] Operative Report ---
Operative Report Operative Date Aug 29, 2017. Pre-Operative Diagnosis Refractory Interstitial Cystitis Post-Operative Diagnosis Refractory Interstitial Cystitis Procedure(s) Performed Cystoscopy, Hydrodistension of Bladder Surgeon Dr. Jakob Chinchilla Optometrist/Practice Owner Surgeon(s) None Estimated Blood Loss 10 mL Findings 500 cc on first distension, 600 second, no bladder injuries or perforation, + glomerulations after completion Specimens No pathology specimens per surgeon Drains None Anesthesia Type General Complication(s) none Disposition no Recovery Room / PACU Indications 27-year-old female with a history of refractory interstitial cystitis who is here today for cystoscopy and hydrodistention under anesthesia to improve her worsening symptoms. Please see H&P for further details. Intravenous ciprofloxacin provided for antibiotic coverage and SCDs used for DVT prophylaxis. Description of Procedure Patient was properly identified and brought into the operative suite after identification for proper consent of the chart. General anesthesia with laryngeal mask was initiated and patient was prepped and draped in the standard fashion for this procedure. Full timeout procedure was followed. 22 Lithuanian rigid cystoscope was introduced into the bladder and bladder was surveyed in its entirety demonstrating no intravesical lesions, papillary masses or calculi. Ureteral orifices were noted to be in the normal anatomic location bilaterally. After measuring the patient's irrigation bag to 100 cm of water irrigation was allowed to flow freely into the bladder. Notching of the blood vessels was appreciated. Once the capacity bladder was left distended for 2 minutes and then drained of 500 cc of irrigant. Glomerulations and bleeding from the bladder mucosa was appreciated as expected. A short period of rest was allowed and the bladder was re-distended with similar results. Capacity was noted to be 600 cc of irrigant on the second pass. Bladder was then drained and cystoscope was removed. Anesthesia was reversed and patient was transferred to the recovery room in stable condition. Follow-up care: Patient to be discharged home after recovery. Prescription for Percocet, ciprofloxacin for postoperative analgesia and antibiotic coverage are provided. Outpatient appointment is confirmed. Patient is instructed to contact our service should she note any difficulties in the postoperative period. I attest to the content of the Intraoperative Record and any orders documented therein. Any exceptions are noted below.
[2017-08-29] MEDS: FENTANYL CITRATE INJ 50 MCG/1 ML 2 ML VIAL IV PRN ×4 (10:36→10:52)
[2017-08-29 11:21] VITALS: BP 104/59; PULSE 59; TEMP 37; O2SAT 98
[2017-08-29 11:50] VITALS: BP 108/59; PULSE 63; TEMP 36.4; O2SAT 96
--- NOTE | 2017-08-29 12:00 | Anesthesiology Progress Note ---
Anesthesia Post Op Note Date & Time Aug 29, 2017 at 12:00 Vital Signs Pain Intensity: 7.0 Vital Signs Past 12 Hours Date Time Temp Pulse Resp B/P (MAP) Pulse Ox O2 Delivery O2 Flow Rate FiO2 08/29/17 11:21 37 59 16 104/59 98 Room Air 08/29/17 11:15 37.2 63 13 97/58 96 Room Air 08/29/17 11:05 57 11 101/55 97 Room Air 08/29/17 10:55 73 12 102/60 96 Room Air 08/29/17 10:45 65 12 111/44 97 Room Air 08/29/17 10:35 67 14 97/60 100 Room Air 08/29/17 10:25 86 13 118/59 100 Oxymask 10 08/29/17 10:17 36.5 85 23 113/58 100 Oxymask 10 08/29/17 09:02 37 89 16 108/68 (81) 98 Room Air Notes Mental Status: alert / awake / arousable, participated in evaluation Pt Amnestic to Procedure: Yes Nausea / Vomiting: adequately controlled Pain: adequately controlled Airway Patency, RR, SpO2: stable & adequate BP & HR: stable & adequate Hydration State: stable & adequate Anesthetic Complications: no major complications apparent
== END 2017-08-29 11:54 | disposition home or self-care (01) ==
LOC: C.ACU 08:32
PROVIDERS: ATTEND Urology
DX: N30.10 Interstitial cystitis (chronic) without hematuria (principal); R35.0 Frequency of micturition; E55.9 Vitamin D deficiency, unspecified; Z82.49 Family history of ischemic heart disease and other diseases of the circulatory system; Z83.3 Family history of diabetes mellitus; Z80.1 Family history of malignant neoplasm of trachea, bronchus and lung; Z80.42 Family history of malignant neoplasm of prostate; Z80.0 Family history of malignant neoplasm of digestive organs; Z84.1 Family history of disorders of kidney and ureter; Z88.0 Allergy status to penicillin

== ENCOUNTER 2017-09-05 21:41 | Emergency (ER) | payer BC ==
[~2017-09-05] VITALS: Ht 175.3 cm; Wt 84.6 kg
[~2017-09-05 21:41] MED LIST changes: -ATROPINE SULFATE 0.1 MG/ML 5ML SYR IV PRN; -BUTA1CAP20 PO; +CIPR-255 PO; -CIPROFLOXACIN / D5W 400 MG IV SCH; -EpHEDrine SULFATE INJ 50 MG/ML AMP IV PRN; -HYDROmorphone INJ 1 MG/ML SYR IV PRN; -LACTATED RINGER'S 1000ML 1,000 ML IV SCH; -NITR1CAP32 PO; -ONDANSETRON INJ 2 MG/ML 2 ML VIAL IV PRN; +OXYC-57 PO; +SUMA50TA15 PO
[2017-09-05 21:43] VITALS: TEMP 36.8; Ht 175.3 cm; Wt 84.6 kg
[2017-09-05] MEDS ORDERED: IMT50 PO (22:19)
[2017-09-05] MEDS ORDERED: FEXO1TAB49 PO (22:22)
[2017-09-05] MEDS ORDERED: d mannose PO (22:22)
[2017-09-05] MEDS ORDERED: ONDANSETRON INJ 2 MG/ML 2 ML VIAL IV STA (22:28)
[2017-09-05] MEDS ORDERED: KETOROLAC TROMETHAMINE 30 MG/ML VIAL IV STA (22:28)
[2017-09-05] MEDS ORDERED: PHENAZOPYRIDINE HCL 200 MG TAB PO STA (22:28)
[2017-09-05] MEDS ORDERED: SODIUM CHLORIDE 0.9% 1000ML 1,000 ML IV STA (22:28)
[2017-09-05 22:57] VITALS: O2SAT 97
[2017-09-05 23:02] LABS: BASO % 0.7 %; BASO ABS # 0.05 K/uL (0-0.2); EOS % 2.8 %; EOS ABS # 0.21 K/uL (0-0.5); HEMATOCRIT 41.1 % (37-47); HEMOGLOBIN 14.6 g/dL (12.0-16.0); IG# 0.02 K/uL (0.00-0.02); LYMPH % 40.2 %; LYMPH ABS # 3.04 K/uL (1.2-3.4); MEAN CELL VOLUME 89.7 fL (80-100); MEAN CORPUSCULAR HEMOGLOBIN 31.9 pg (25-34); MEAN CORPUSCULAR HGB CONC 35.5 g/dl (32-36); MONO ABS # 1.06 K/uL (0.11-0.59); NEUT ABS # 3.18 K/uL (1.4-6.5); PLATELET COUNT 233 K/uL (130-400); RED CELL DISTRIBUTION WIDTH CV 12.8 % (11.5-14.5); RED CELL DISTRIBUTION WIDTH SD 41.8 fL (36.4-46.3); WHITE BLOOD COUNT 7.56 K/uL (4.8-10.8)
[2017-09-05 23:19] LABS: ALBUMIN 3.6 gm/dl (3.4-5.0); ALT/SGPT 35 U/L (12-78); BLOOD UREA NITROGEN 15 mg/dl (7-18); CALCIUM 8.8 mg/dl (8.5-10.1); CARBON DIOXIDE 24 mmol/L (21-32); CREATININE 0.96 mg/dl (0.60-1.20); GLUCOSE 116 mg/dl (70-99); POTASSIUM 3.6 mmol/L (3.5-5.1); SODIUM 139 mmol/L (136-145)
[2017-09-05 23:22] LABS: ALKALINE PHOSPHATASE 92 U/L (45-117); AST/SGOT 19 U/L (15-37); TOTAL PROTEIN 7.3 gm/dl (6.4-8.2)
[2017-09-06] MEDS ORDERED: PHEN-876 PO (00:53)
[2017-09-06] MEDS ORDERED: PHENAZOPYRIDINE HOME PACK 200 MG VIAL PO ONE (01:00)
[2017-09-06 01:09] VITALS: BP 101/64; PULSE 76; O2SAT 97
--- NOTE | 2017-09-06 03:54 | EMERGENCY ROOM VISIT NOTE ---
History First contact with patient: 22:15 Chief Complaint: PELVIC PAIN Stated Complaint: PELVIC PAIN, CRAMPS History of Present Illness The patient is a 27 year old female who presents to the Emergency Room with complaints of pelvic pain bleeding and discomfort for the past few days after getting cystoscopy done with dilation of her bladder by Dr. Chinchilla for interstitial cystitis. Patient has not notified her urologist. Patient is not sure where she is bleeding from either her urethra or from her vaginal area. She has an IUD. She describes the pain as cramping, ranging in severity 7 out of 10. Nothing makes it better or worse. Patient denies upper abdominal pain, flank pain, back pain, urinary frequency, urgency or dysuria, fever, chills, cough, congestion. This is her third cystoscopy with dilation. No problems with the prior scopes. She states this does not feel like a UTI. Review of Systems An 10 system review of systems was completed with positives and pertinent negatives listed in the HPI. Past Medical/Surgical History Medical Problems: (1) Kidney stones (2) Stomach problems Surgical Problems: (1) H/O lithotripsy (2) History of appendectomy Family History Diabetes mellitus FH: heart disease FH: lung cancer FH: lung disease FHx: cancer Hypertension Seizures Social History Smoking Status: Never Smoker Alcohol Use: none Drug Use: none Marital Status: in relationship Housing Status: lives with family Occupation Status: [employer] student Current/Historical Medications Scheduled Fexofenadine Hcl (Joann Allergy), 180 MG PO DAILY Levonorgestrel (Iud) (Saranya), 13.5 MG INT UTER UD Phenazopyridine HCl (Pyridium), 200 MG PO TID [d mannose], 1 DOSE PO UD Scheduled PRN Sumatriptan Succinate (Sumatriptan Succinate), 50 MG PO UD PRN for Migraine Physical Exam Vital Signs Date Time Temp Pulse Resp B/P (MAP) Pulse Ox O2 Delivery O2 Flow Rate FiO2 09/06/17 01:09 76 16 101/64 97 09/06/17 00:07 74 16 113/61 97 Room Air 09/05/17 23:58 74 09/05/17 22:57 97 Room Air 09/05/17 22:57 64 16 111/64 97 Room Air 09/05/17 21:43 36.8 92 18 145/101 99 Room Air Physical Exam VITALS: Vitals are noted on the nurse's note and reviewed by myself. Vital signs stable. GENERAL: Pleasant female, in no acute distress, nondiaphoretic, well-developed well-nourished. SKIN: Capillary reflex less than 2 seconds. HEENT: Normocephalic. PERRLA. EOMI. Nares patent. Mucous membranes moist. Neck is supple without nuchal rigidity. HEART: Regular rate and rhythm without murmurs gallops or rubs. LUNGS: Clear to auscultation bilaterally without wheezes, rales or rhonchi. No retractions or accessory muscle use. ABDOMEN: Positive bowel sounds x 4. Normal tympanic percussion. Soft, nontender, without masses or organomegaly. Heck sign negative. No guarding or rebound tenderness. No CVA tenderness exam: Normal external female genitalia without laceration or tears, no bleeding from the urethra, minimal blood in the vaginal canal, IUD string visible. Diamond Die Maker present MUSCULOSKELETAL: No gross musculoskeletal defects. No pedal edema. No calf tenderness. NEURO: Patient was alert and oriented to person place and time. Normal sensation to light and sharp touch. No focal neurological deficits. Medical Decision & Procedures Laboratory Results 09/05/17 22:50 Red Blood Count 4.58, Mean Corpuscular Volume 89.7, Mean Corpuscular Hemoglobin 31.9, Mean Corpuscular Hemoglobin Concent 35.5, Mean Platelet Volume 10.0, Neutrophils (%) (Auto) 42.0, Lymphocytes (%) (Auto) 40.2, Monocytes (%) (Auto) 14.0, Eosinophils (%) (Auto) 2.8, Basophils (%) (Auto) 0.7, Neutrophils # (Auto ) 3.18, Lymphocytes # (Auto) 3.04, Monocytes # (Auto) 1.06, Eosinophils # (Auto ) 0.21, Basophils # (Auto) 0.05 09/05/17 22:50 Test 09/05/17 22:50 White Blood Count 7.56 K/uL (4.8-10.8) Red Blood Count 4.58 M/uL (4.2-5.4) Hemoglobin 14.6 g/dL (12.0-16.0) Hematocrit 41.1 % (37-47) Mean Corpuscular Volume 89.7 fL (80-100) Mean Corpuscular Hemoglobin 31.9 pg (25-34) Mean Corpuscular Hemoglobin Concent 35.5 g/dl (32-36) Platelet Count 233 K/uL (130-400) Mean Platelet Volume 10.0 fL (7.4-10.4) Neutrophils (%) (Auto) 42.0 % Lymphocytes (%) (Auto) 40.2 % Monocytes (%) (Auto) 14.0 % Eosinophils (%) (Auto) 2.8 % Basophils (%) (Auto) 0.7 % Neutrophils # (Auto) 3.18 K/uL (1.4-6.5) Lymphocytes # (Auto) 3.04 K/uL (1.2-3.4) Monocytes # (Auto) 1.06 K/uL (0.11-0.59) Eosinophils # (Auto) 0.21 K/uL (0-0.5) Basophils # (Auto) 0.05 K/uL (0-0.2) RDW Standard Deviation 41.8 fL (36.4-46.3) RDW Coefficient of Variation 12.8 % (11.5-14.5) Immature Granulocyte % (Auto) 0.3 % Immature Granulocyte # (Auto) 0.02 K/uL (0.00-0.02) Urine Color YELLOW Urine Appearance CLOUDY (CLEAR) Urine pH 7.0 (4.5-7.5) Urine Specific [place] 1.024 (1.000-1.030) Urine Protein NEG (NEG) Urine Glucose (UA) NEG (NEG) Urine Ketones TRACE (NEG) Urine Occult Blood 3+ (NEG) Urine Nitrite NEG (NEG) Urine Bilirubin NEG (NEG) Urine Urobilinogen NEG (NEG) Urine Leukocyte Esterase NEG (NEG) Urine WBC (Auto) 1-5 /hpf (0-5) Urine RBC (Auto) >30 /hpf (0-4) Urine Hyaline Casts (Auto) 1-5 /lpf (0-5) Urine Epithelial Cells (Auto) 20-30 /lpf (0-5) Urine Bacteria (Auto) NEG (NEG) Urine Test NEG (NEG) Anion Gap 7.0 mmol/L (3-11) Est Creatinine Clear Calc Drug Dose 102.2 ml/min Estimated GFR () 93.9 Estimated GFR (Non- 81.1 BUN/Creatinine Ratio 15.6 (10-20) Calcium Level 8.8 mg/dl (8.5-10.1) Total Bilirubin 0.2 mg/dl (0.2-1) Direct Bilirubin < 0.1 mg/dl (0-0.2) Aspartate Amino Transf (AST/SGOT) 19 U/L (15-37) Alanine Aminotransferase (ALT/SGPT) 35 U/L (12-78) Alkaline Phosphatase 92 U/L (45-117) Total Protein 7.3 gm/dl (6.4-8.2) Albumin 3.6 gm/dl (3.4-5.0) Medications Administered Medications (Trade) Dose Ordered Sig/Ni Route Start Time Stop Time Status Last Admin Dose Admin Phenazopyridine HCl (Pyridium Tab) 200 mg NOW STAT PO 09/05/17 22:28 09/05/17 22:31 DC 09/05/17 22:54 200 MG Ketorolac Tromethamine (Toradol Inj) 15 mg NOW STAT IV 09/05/17 22:28 09/05/17 22:31 DC 09/05/17 22:54 15 MG Ondansetron HCl (Zofran Inj) 4 mg NOW STAT IV 09/05/17 22:28 09/05/17 22:31 DC 09/05/17 22:54 4 MG Sodium Chloride 1,000 ml @ 999 mls/hr Q1H1M STAT IV 09/05/17 22:28 09/05/17 23:28 DC 09/05/17 22:54 999 MLS/HR Phenazopyridine HCl (Phenazopyridine HCl 200MG Home Pack) 1 homepack UD ONCE PO 09/06/17 01:00 09/06/17 01:01 DC 09/06/17 01:08 1 HOMEPACK ED Course Prior records/ancillary studies reviewed. Triage Nursing notes reviewed. Additional history obtained from philip The patient's history was concerning for pelvic pain. Differential diagnosis: Differential diagnosis includes complication of cystoscopy, UTI, salpingitis, , ectopic , incomplete , septic , ruptured ovarian cyst, ovarian torsion, Mittelschmerz, endometritis, dysmenorrhea, appendicitis, PID, and others. Physical examination findings: As above. ER treatment provided: Pyridium, Toradol On reassessment the patient felt better. Diagnostics interpreted by me: The labs revealed no worrisome leukocytosis or electrolyte abnormality. Negative hCG. Hematuria without signs of UTI on urinalysis Imaging studies: Renal ultrasound with no hydronephrosis, bladder is underdistended, IUD in place. No lesions are torsions of the pelvic ultrasound per radiology Exam and history seem consistent with pelvic cramping most likely from recent procedure. Patient had no signs of UTI. She felt better after being medicated as above. She is advised to notify her urologist in the morning for follow-up this week and to take the Pyridium as directed. She is advised to rest, stay well hydrated and return to the ER sooner for severe pain, bleeding, fevers, worsening signs or symptoms or as needed. Patient did not have acute abdomen on exam. She was well-appearing. By the evaluation outlined above emergent etiologies such as , appendicitis, diverticulitis, PUD, biliary pathology, UTI, pancreatitis, obstruction, mesenteric ischemia, aortic pathology, infections, inflammatory bowel disease, renal colic, as well as others were deemed relatively unlikely. The pt informed about the findings as listed above. All questions were answered and pleased with the treatment. Return instructions were outlined and the patient was discharged in stable condition. Outpatient prescription management: Pyridium Referral: The patient was referred back to their urologist for follow-up in 2 to 3 days for a recheck of the current condition. Case reviewed with my attending The chart was completed utilizing [employer] voice recognition software. Grammatical errors, random word insertions, pronoun errors, and incomplete sentences are an occassional consequence of this system due to software limitations, ambient noise, and hardware issues. Any formal questions or concerns about the content, text, or information contained within the body of this dictation should be directly addressed to the physician assistant professor of geography for clarification. Medical Decision As above Medication Reconcilliation Current Medication List: was personally reviewed by me Blood Pressure Screening Patient's blood pressure: Normal blood pressure Impression Primary Impression: Pelvic pain Departure Information Dispostion Home / Self-Care Condition GOOD Prescriptions Phenazopyridine HCl (Pyridium) 200 Mg Tab 200 MG PO TID for 3 Days, #9 TAB Prov: lAeja Chan PA-C 09/06/17 Forms WORK / SCHOOL INSTRUCTIONS, HOME CARE DOCUMENTATION FORM, IMPORTANT VISIT INFORMATION Patient Instructions My [facility] Additional Instructions Pyridium 200mg: Take one pill three times daily as needed for urinary discomfort. This medication will turn your urine orange. This is normal and nothing to be concerned about. Zofran 4 mg: Take one every six hours as needed for nausea. Avoid alcohol, operating machinery or dangerous equipment, working on ladders or roofs, DRIVING , or situations where being under the influence may be dangerous. Ibuprofen(Motrin, Advil) may be used for fever or pain. Use 600mg every six hours as needed. Take with food. Avoid using more than 2400mg in a 24 hour period. Do not use 2400mg per day for more than three consecutive days without physician direction. Prolonged inappropriate use can lead to stomach upset or ulcers. (AND/OR) Acetaminophen(Tylenol) may be used for fever or pain. Use 1000mg every six hours as needed. Avoid using more than 3000mg in a 24 hour period. Continue current medications. Return to the ER immediately for worsening or persistent pelvic/abdominal/back pain, vomiting, fevers, worsening of your condition, or as needed. Follow up with your Urologist within 2-3 days for a recheck of the current condition.
--- NOTE | 2017-09-06 07:04 | DIAGNOSTIC IMAGING REPORT ---
ULTRASOUND KIDNEYS AND BLADDER CLINICAL HISTORY: Pelvic pain. COMPARISON STUDY: Abdominal CT dated 01/29/2016. TECHNIQUE: Real-time, grayscale, and color flow sonography of the kidneys and bladder is performed. Images are reviewed in the transverse and longitudinal planes. FINDINGS: Kidneys: The kidneys are normal in size and echotexture. The right kidney measures 11.6 x 6.2 x 6.9 cm and the left kidney measures 11.9 x 5.9 x 6.3 cm. There is no hydronephrosis. No shadowing renal calculi are identified. There is no sonographic evidence of contour deforming renal mass lesion. No perinephric fluid is identified. Bladder: The bladder is decompressed and not well evaluated. Ureteral jets were not seen. IMPRESSION: 1. The kidneys are normal in size and without hydronephrosis. 2. The bladder was decompressed and not well evaluated. Electronically signed by: Rob Manzano M.D. 09/06/2017 7:03 AM Dictated Date/Time: 09/06/2017 7:02 AM
--- NOTE | 2017-09-06 07:21 | DIAGNOSTIC IMAGING REPORT ---
EXAMINATION: PELVIC ULTRASOUND (transabdominal and endovaginal scanning) CLINICAL HISTORY: pelvic pain, IUD, recent bladder scope COMPARISON STUDY: December 2015 FINDINGS: The uterus measured 77 x 35 x 44 mm. An IUD was visualized within the endometrial cavity.. The endometrial stripe measured 3 mm. The right ovary measured 28 x 15 x 23 mm. The left ovary was nonvisualized There is trace free fluid in the cul-de-sac, likely physiologic. IMPRESSION: Nonvisualization left ovary. Ultrasonographically normal uterus and right ovary. IUD within the endometrial cavity. Electronically signed by: Rene Varma M.D. 09/06/2017 7:19 AM Dictated Date/Time: 09/06/2017 7:17 AM
== END 2017-09-06 01:11 | disposition home or self-care (01) ==
LOC: C.EDB 21:42 → C.EDC 09-06 01:11
DX: R10.2 Pelvic and perineal pain (principal); N93.9 Abnormal uterine and vaginal bleeding, unspecified; Z87.442 Personal history of urinary calculi; Z83.3 Family history of diabetes mellitus; Z82.49 Family history of ischemic heart disease and other diseases of the circulatory system; Z82.0 Family history of epilepsy and other diseases of the nervous system; Z80.1 Family history of malignant neoplasm of trachea, bronchus and lung